=== PATIENT | female | born 1995 | race Caucasian/White ===

== ENCOUNTER 2017-04-10 16:15 | Emergency (ER) | payer MEDICAID ==
[2017-04-10 16:37] VITALS: O2SAT 100
[2017-04-10] MEDS ORDERED: Sodium Chloride 0.9% 500 ML IV ONE ×2 (17:36→18:18)
[2017-04-10] MEDS ORDERED: cefTRIAXone IV 1 gm in Dextros 50 ML IV ONE (17:37)
--- NOTE | 2017-04-10 17:41 | C.PDOC ---
History Of Present Illness 21 year old female presents to the ED with complaints of left sided breast pain since this morning. Patient states she has been breast feeding for two and a half months. This morning she noted left breast tenderness and fever. Patient has breast fed and pumped since this morning. She denies headache, n/v, drainage , and redness. Time Seen by Provider: 04/10/17 17:03 Chief Complaint (Nursing): Breast Problem History Per: Patient History/Exam Limitations: no limitations Onset/Duration Of Symptoms: Hrs Current Symptoms Are (Timing): Still Present Recent travel outside of the [place]: No Past Medical History Reviewed: Historical Data, Nursing Documentation, Vital Signs Vital Signs: Last Vital Signs Temp 97.8 F 04/10/17 18:40 Pulse 84 04/10/17 18:40 Resp 18 04/10/17 18:40 BP 111/71 04/10/17 18:40 Pulse Ox 100 04/10/17 18:49 Family History: States: Unknown Family Hx - Social History Hx Alcohol Use: No Hx Substance Use: No - Immunization History Hx Tetanus Toxoid Vaccination: No Hx Influenza Vaccination: No Hx Pneumococcal Vaccination: No Review Of Systems Constitutional: Positive for: Fever (subjective ), Other (left breast pain ). Negative for: Chills Cardiovascular: Negative for: Chest Pain Skin: Negative for: Rash Physical Exam - Physical Exam Appears: Non-toxic, No Acute Distress Skin: Warm, Dry, Other (Tenderness to the 12 o'clock area of the left breast with some induration. No erythema. ) Head: Atraumatic, Normacephalic Eye(s): bilateral: Normal Inspection, PERRL, EOMI Nose: Normal Oral Mucosa: Moist Neck: Normal ROM, Supple Chest: Symmetrical Cardiovascular: Rhythm Regular, No Murmur Respiratory: Normal Breath Sounds, No Rales, No Rhonchi, No Wheezing, Other ( clear to auscultation ) Gastrointestinal/Abdominal: Soft, No Tenderness, No Distention, No Guarding, No Rebound Neurological/Psych: Oriented x3 ED Course And Treatment - Laboratory Results Result Diagrams: 04/10/17 17:48 04/10/17 17:48 O2 Sat by Pulse Oximetry: 100 (RA) Progress Note: Blood work was orded. Patient was given Tylenol, Rocephin, and IV fluids. Patient was instructed to use a warm compress and to follow up with gnecologist and have a wound check in two days. Case discussed with Dr Woodard, agreed upon plan and treatment. Disposition - Disposition Disposition: RELEASED IN [employer] Disposition Time: 18:14 Condition: STABLE Additional Instructions: Massage the area. Apply warm compresses. Wound check in 2 days. Return to ER if symptoms persist or worsen. Prescriptions: Cephalexin [cephalexin] 500 mg PO BID #14 cap Instructions: Mastitis (ED) Forms: [employer] ([place]) - Clinical Impression Clinical Impression: Mastitis - PA / [employer] / Resident Statement MD/DO has reviewed & agrees with the documentation as recorded. - Scribe Statement The provider has reviewed the documentation as recorded by the Scribe Eloisa Read All medical record entries made by the Gianfrancoibflavia were at my direction and personally dictated by me. I have reviewed the chart and agree that the record accurately reflects my personal performance of the history, physical exam, medical decision making, and the department course for this patient. I have also personally directed, reviewed, and agree with the discharge instructions and disposition.
[2017-04-10 17:55] LABS: BASO % 0.1 % (0.0-2.0); EOS % 0.1 % (0.0-4.0); HEMATOCRIT 39.4 % (34.0-47.0); LYMPH # 0.4 K/uL (1.0-4.3); LYMPH % 4.4 % (20.0-40.0); MEAN CELL VOLUME 86.1 fL (81.0-99.0); MEAN CORPUSCULAR HEMOGLOBIN 29.5 pg (27.0-31.0); MEAN CORPUSCULAR HGB CONC 34.3 g/dL (33.0-37.0); MEAN PLATELET VOLUME 8.9 fL (7.2-11.7); MONO # 0.6 K/uL (0.0-0.8); MONO % 7.5 % (0.0-10.0); NRBC % 0.1 % (0.0-2.0); PLATELET COUNT 198 K/uL (130-400); RED CELL DISTRIBUTION WIDTH 13.1 % (11.5-14.5); WHITE BLOOD COUNT 8.5 K/uL (4.8-10.8)
[2017-04-10 18:04] LABS: CHLORIDE 96 mmol/L (98-107); POTASSIUM 3.7 mmol/L (3.6-5.2); SODIUM 133 mmol/L (132-148)
[2017-04-10 18:06] LABS: ALB/GLOB RATIO 1.6 (1.0-2.1); ALKALINE PHOSPHATASE 87 U/L (38-126); AST/SGOT 24 U/L (14-36); BILIRUBIN,TOTAL 1.3 mg/dL (0.2-1.3); CARBON DIOXIDE 23 mmol/L (22-30); GFR AFRICAN-AMERICAN > 60; TOTAL PROTEIN 8.1 g/dL (6.3-8.3)
[2017-04-10 18:07] LABS: ALT/SGPT 29 U/L (9-52); BLOOD UREA NITROGEN 14 mg/dL (7-17); CALCIUM 9.5 mg/dl (8.6-10.4); GLUCOSE,RANDOM 109 mg/dL (65-105)
[2017-04-10] MEDS ORDERED: cefTRIAXone IV 1 gm in Dextros 50 ML IVPB ONE (18:18)
[2017-04-10 18:41] VITALS: BP 111/71; PULSE 84; RESP 18; TEMP 97.8
[2017-04-10 19:43] LABS: NEUTROPHIL 68 % (50-75); TOTAL CELLS COUNTED 100
[2017-04-10 19:44] LABS: LARGE PLATELETS PRESENT
== END 2017-04-10 18:49 ==
LOC: C.ER 16:15
DX: N61.0 Mastitis without abscess (principal)
CPT/HCPCS: 80053; 85025; 87040; 96374; 99284; J0696; J7040